=== PATIENT | male | born 1945 | race Caucasian/White ===

== ENCOUNTER 2017-03-11 15:38 | Emergency (ER) | payer MEDICARE, OTHER ==
[2017-03-11 16:05] VITALS: BP 116/50
--- NOTE | 2017-03-11 16:09 | UC ---
Upper Extremity HPI - HPI Summary HPI Summary: 72 YEAR OLD MALE PRESENTS WITH COMPLAINS OF LEFT WRIST PAIN SECONDARY TO A FALL. - History of Current Complaint Chief Complaint: UCUpperExtremity Stated Complaint: HAND INJURY Time Seen by Provider: 03/11/17 16:08 Hx Obtained From: Patient Onset/Duration: Sudden Onset Severity Initially: Moderate Severity Currently: Moderate Pain Scale Used: 0-10 Numeric - 6 Character: Sharp Aggravating Factor(s): Movement - Allergies/Home Medications Allergies/Adverse Reactions: Allergies Allergy/AdvReac Type Severity Reaction Status Date / Time No Known Allergies Allergy Verified 03/11/17 16:05 PMH/Surg Hx/FS Hx/Imm Hx Previously Healthy: Yes - Surgical History Surgical History: Yes - Social History Alcohol Use: None Substance Use Type: None Smoking Status (MU): Never Smoked Tobacco Review of Systems Constitutional: Negative Skin: Negative Eyes: Negative ENT: Negative Respiratory: Negative Cardiovascular: Negative Gastrointestinal: Negative Genitourinary: Negative Motor: Negative Neurovascular: Negative Musculoskeletal: Other: - LEFT WRIST PAIN/SWELLING Neurological: Negative Psychological: Negative All Other Systems Reviewed And Are Negative: Yes Physical Exam Triage Information Reviewed: Yes Appearance: Pain Distress Vital Signs: Initial Vital Signs Temp 36.4 C 03/11/17 16:02 Pulse 72 03/11/17 16:02 Resp 12 03/11/17 16:02 BP 116/50 03/11/17 16:02 Pulse Ox 99 03/11/17 16:02 Vital Signs Reviewed: Yes Eye Exam: Normal ENT Exam: Normal Dental Exam: Normal Neck exam: Normal Neck: Positive: 1 Respiratory Exam: Normal Cardiovascular Exam: Normal Abdominal Exam: Normal Musculoskeletal: Positive: Other: - LEFT WRIST PAIN Neurological Exam: Normal Psychological Exam: Normal Skin Exam: Normal Upper Extremity Course/Dx - Differential Dx/Diagnosis Provider Diagnoses: LEFT WRIST PAIN/SWELLING Discharge - Discharge Plan Condition: Stable Disposition: HOME Prescriptions: Meloxicam [Mobic] 7.5 mg PO BID PC #30 tab Patient Education Materials: Wrist Sprain (ED) Referrals: Monroe Jean MD [Primary Care Provider] - Ayush Loja MD [Medical Doctor] -
--- NOTE | 2017-03-11 16:37 | RAD ---
INDICATION: LEFT wrist pain and swelling posteriorly post fall. COMPARISON: No relevant prior exams available on the [facility] PACS for comparison. TECHNIQUE: AP, lateral, and oblique views LEFT wrist. REPORT: No cortical disruption or suspicious trabecular irregularity to suggest fracture. Normal articular alignment. Mild osteophytosis including at the distal radial ulnar, scaphoid trapezium, and trapezium first metacarpal articulations without significant joint space narrowing. More advanced osteophytosis at the interphalangeal joint of the thumb. Nonfocal soft tissue swelling about the wrist. IMPRESSION: Nonfocal soft tissue swelling without visualized fracture. If there is high index of suspicion for an occult scaphoid fracture a dedicated scaphoid view and potential repeat exam in 7 - 10 days would be suggested.
== END 2017-03-11 16:51 | disposition home or self-care (01) ==
LOC: UCEAST 15:38
DX: M25.532 Pain in left wrist (principal); R22.32 Localized swelling, mass and lump, left upper limb
CPT/HCPCS: 99202; G0463